=== PATIENT | female | born 1950 | race Caucasian/White ===

== ENCOUNTER 2023-05-29 21:52 | Inpatient (IN) | payer OTHER ==
[2023-05-29 23:37] LABS: #Eosinphils 0.2 thou/uL (0.0-0.7); #Monocytes 0.9 thou/uL (0.11-0.59); #Neutrophils 7.6 thou/uL (1.40-6.50); %Basophils 0.1 % (0.0-1.0); %Eosinophils 1.7 % (0.0-10.0); %Lymphocytes 6.2 % (21.0-51.0); %Monocytes 9.4 % (0.0-10.0); %Neutrophils 82.4 % (42.0-75.0); Hemoglobin 9.3 g/dL (12.0-16.0); Mean Corpuscular Volume 103.1 fl (78.0-98.0); Mean Platelet Volume 11.5 fL (7.4-10.4); Platelet Count 121 10x3/uL (130-400); RBC Distribution Width 23.4 % (11.5-14.5); Red Blood Cell (RBC) Count 2.91 mill/uL (4.20-5.40); White Blood Cell (WBC) Count 9.2 10x3/uL (4.8-10.8)
[2023-05-30 00:03] LABS: Troponin I 0.096 ng/mL (< 0.028)
[2023-05-30 00:06] LABS: ALT (SGPT) 49 U/L (8-55); AST (SGOT) 25 U/L (5-34); Albumin 3.6 g/dL (3.4-4.8); Alkaline Phosphatase 122 U/L (40-110); Anion Gap 18 mmol/L (10-20); BUN (Urea Nitrogen) 29 mg/dL (9.8-20.1); Bilirubin, Total 1.3 mg/dL (0.2-1.2); Calc. Creatinine Clearance 0 mL/min (70-130); Calcium 8.9 mg/dL (7.8-10.44); Carbon Dioxide 25 mmol/L (23-31); Chloride 100 mmol/L (98-107); Estimated GFR 13; Globulin 3.2 g/dL (2.4-3.5); Glucose 110 mg/dL (83-110); Potassium 4.2 mmol/L (3.5-5.1); Protein, Total 6.8 g/dL (5.8-8.1); Sodium 139 mmol/L (136-145)
[2023-05-30] MEDS ORDERED: Labetalol HCl 100 MG/20 ML VIAL ONE (00:17)
[2023-05-30 00:26] LABS: Acetaminophen Less than 10 mcg/mL (10.0-30.0); Alcohol Less than 10.0 mg/dL (Less than 10); Magnesium 1.9 mg/dL (1.6-2.6); Salicylate Less than 8.0 mg/dL (15.0-30.0)
[2023-05-30] MEDS ORDERED: Nitroglycerin 2% Ointment 1 INCH/1 GM Packet ONE (01:00)
[2023-05-30] MEDS ORDERED: Nitroglycerin 50 MG/250 ML BOT 250 ML ONE (01:01)
[2023-05-30] MEDS ORDERED: Nitroglycerin 50 MG/250 ML BOT 250 ML IVPB SCH (01:45)
[2023-05-30] MEDS ORDERED: Ondansetron PF 4 MG/2 ML Vial IVP PRN (02:26)
[2023-05-30] MEDS ORDERED: Ondansetron ODT 4 MG TAB PO PRN (02:26)
[2023-05-30] MEDS ORDERED: Acetaminophen 650 MG Suppository PR PRN (02:26)
[2023-05-30] MEDS ORDERED: cefTRIAXone (ROCEPHIN) 1 GM VIAL ONE (02:41)
[2023-05-30 03:11] LABS: #Eosinphils 0.2 thou/uL (0.0-0.7); #Monocytes 0.9 thou/uL (0.11-0.59); #Neutrophils 6.2 thou/uL (1.40-6.50); %Eosinophils 2.8 % (0.0-10.0); %Monocytes 11.5 % (0.0-10.0); %Neutrophils 76.5 % (42.0-75.0); Hematocrit 27.4 % (36.0-47.0); Hemoglobin 8.5 g/dL (12.0-16.0); Mean Platelet Volume 10.7 fL (7.4-10.4); Platelet Count 108 10x3/uL (130-400); RBC Distribution Width 23.2 % (11.5-14.5); Red Blood Cell (RBC) Count 2.66 mill/uL (4.20-5.40); White Blood Cell (WBC) Count 8.1 10x3/uL (4.8-10.8)
[2023-05-30 03:35] LABS: Calcium 8.5 mg/dL (7.8-10.44); Chloride 101 mmol/L (98-107); Glucose 108 mg/dL (83-110); Potassium 4.4 mmol/L (3.5-5.1); Sodium 138 mmol/L (136-145)
[2023-05-30 03:37] LABS: Anion Gap 17 mmol/L (10-20); Carbon Dioxide 24 mmol/L (23-31)
[2023-05-30 03:39] LABS: BUN (Urea Nitrogen) 31 mg/dL (9.8-20.1); Calc. Creatinine Clearance 0 mL/min (70-130); Estimated GFR 12
[2023-05-30 04:36] LABS: HBSAB Concentration Less than 8.00 mIU/mL; Hep B Core Total Ab Non-Reactive (NonReactive); Hep B Core Total Index 0.06 S/CO (0-0.79); Hep B Surf AB Non-Reactive (NonReactive); Hep C IgG Ab Non-Reactive S/CO (NonReactive); Hep C Index 0.06 S/CO (0-0.79)
[2023-05-30] MEDS: Albumin 25% 25 GM/100 ML BOT IVPB PRN ×2 (04:40→05:15)
[2023-05-30 06:16] LABS: Hep B Surf Ag Non-Reactive S/CO (NonReactive)
[2023-05-30 06:17] LABS: HBSAg Index 0.22 S/CO (0-0.99)
[2023-05-30] MEDS: Acetaminophen 325 MG TAB PO PRN (08:29)
[2023-05-30] MEDS: niCARdipine 25 MG in Sodium Chloride 0.9% 250 ML 250 ML IVPB SCH (10:23)
[2023-05-30] MEDS ORDERED: Amlodipine 10 MG TAB PO SCH (10:45)
[2023-05-30] MEDS ORDERED: Glucagon 1 MG/ML KIT IM PRN (14:31)
[2023-05-30] MEDS ORDERED: Dextrose 50% Abboject 50 ML SYRINGE SLOW IVP PRN (14:31)
[2023-05-30] MEDS ORDERED: HumaLOG 300 UNITS/3 ML VIAL SC PRN (14:31)
[2023-05-30] MEDS ORDERED: Dextrose 5% in Water 1,000 ML IV PRN (14:31)
[2023-05-30] MEDS: hydrALAZINE 25 MG TAB PO SCH (20:57)
[2023-05-30] MEDS: Atorvastatin Calcium 40 MG TAB PO SCH (20:57)
[2023-05-30] MEDS: Venlafaxine HCl XR 150 MG CAP PO SCH (20:57)
[2023-05-31] MEDS: niCARdipine 25 MG in Sodium Chloride 0.9% 250 ML 250 ML IVPB SCH (00:16)
[2023-05-31 03:59] LABS: #Eosinphils 0.4 thou/uL (0.0-0.7); #Monocytes 0.8 thou/uL (0.11-0.59); #Neutrophils 5.9 thou/uL (1.40-6.50); %Eosinophils 5.1 % (0.0-10.0); %Lymphocytes 8.6 % (21.0-51.0); %Neutrophils 76.2 % (42.0-75.0); Hematocrit 28.5 % (36.0-47.0); Hemoglobin 9.1 g/dL (12.0-16.0); Mean Corpuscular HGB CONC 31.9 g/dL (32.0-36.0); Mean Corpuscular Hemoglobin 31.8 pg (27.0-31.0); Mean Corpuscular Volume 99.7 fl (78.0-98.0); Mean Platelet Volume 10.6 fL (7.4-10.4); Platelet Count 136 10x3/uL (130-400); RBC Distribution Width 22.3 % (11.5-14.5); Red Blood Cell (RBC) Count 2.86 mill/uL (4.20-5.40); White Blood Cell (WBC) Count 7.8 10x3/uL (4.8-10.8)
[2023-05-31 04:19] LABS: ALT (SGPT) 35 U/L (8-55); AST (SGOT) 19 U/L (5-34); Albumin 3.7 g/dL (3.4-4.8); Alkaline Phosphatase 111 U/L (40-110); Anion Gap 15 mmol/L (10-20); BUN (Urea Nitrogen) 26 mg/dL (9.8-20.1); Bilirubin, Total 1.6 mg/dL (0.2-1.2); Calc. Creatinine Clearance 12 mL/min (70-130); Calcium 8.5 mg/dL (7.8-10.44); Carbon Dioxide 26 mmol/L (23-31); Chloride 98 mmol/L (98-107); Estimated GFR 14; Globulin 2.7 g/dL (2.4-3.5); Glucose 109 mg/dL (83-110); Potassium 3.9 mmol/L (3.5-5.1); Protein, Total 6.4 g/dL (5.8-8.1); Sodium 135 mmol/L (136-145)
[2023-05-31 08:24] VITALS: BMI 20.1
[2023-05-31] MEDS: Amlodipine 10 MG TAB PO SCH (08:30)
[2023-05-31] MEDS: Venlafaxine HCl XR 150 MG CAP PO SCH ×2 (08:31→20:34)
[2023-05-31] MEDS: hydrALAZINE 25 MG TAB PO SCH ×2 (08:31→20:35)
[2023-05-31] MEDS ORDERED: Heparin 10,000 UNITS/ 10 ML VIAL ONE (08:58)
[2023-05-31] MEDS ORDERED: EPOETIN ALFA-EPBX (ESRD) 10,000 UNITS/ML VIAL IVP SCH (09:00)
[2023-05-31] MEDS: Atorvastatin Calcium 40 MG TAB PO SCH (20:34)
[2023-05-31] MEDS: Acetaminophen 325 MG TAB PO PRN (20:34)
[2023-06-01] MEDS: Venlafaxine HCl XR 150 MG CAP PO SCH ×2 (08:44→19:46)
[2023-06-01] MEDS: hydrALAZINE 25 MG TAB PO SCH ×2 (08:44→19:45)
[2023-06-01] MEDS: Amlodipine 10 MG TAB PO SCH (08:44)
[2023-06-01] MEDS: Aspirin Chewable 81 MG TAB PO SCH (09:21)
[2023-06-01] MEDS: Clopidogrel Bisulfate 75 MG TAB PO SCH (09:22)
[2023-06-01] MEDS: Atorvastatin Calcium 40 MG TAB PO SCH (19:45)
[2023-06-01] MEDS: Acetaminophen 325 MG TAB PO PRN (19:46)
[2023-06-02 07:38] VITALS: BP 173/66; TEMP 97.6
[2023-06-02] MEDS: Clopidogrel Bisulfate 75 MG TAB PO SCH (07:59)
[2023-06-02] MEDS: Venlafaxine HCl XR 150 MG CAP PO SCH (07:59)
[2023-06-02] MEDS: Aspirin Chewable 81 MG TAB PO SCH (07:59)
[2023-06-02] MEDS: hydrALAZINE 25 MG TAB PO SCH (08:03)
[2023-06-02] MEDS: Amlodipine 10 MG TAB PO SCH (08:03)
[2023-06-02] MEDS ORDERED: FLU VACC QS2023(65UP)/MF59C/PF 60 MCG/0.5 ML SYRINGE IM ONE (09:00)
[2023-06-02] MEDS ORDERED: Epoetin (ESRD) 10,000 UNITS/ML VIAL IVP SCH (09:00)
== END 2023-06-02 15:48 | disposition home or self-care (01) | DRG 70 ==
LOC: ERS 21:52 → CCU 05-30 01:31 → T4-A 05-31 09:19 → T4-B 05-31 11:08 → T4-A 05-31 11:09
PROVIDERS: ADMIT Student in an Organized Health Care Education/Training Program; ATTEND Internal Medicine
PROC: 30233J1 Transfusion of Nonautologous Serum Albumin into Peripheral Vein, Percutaneous Approach (ICD-10-PCS; principal; 2023-05-30)
PROC: 5A09357 Assistance with Respiratory Ventilation, Less than 24 Consecutive Hours, Continuous Positive Airway Pressure (ICD-10-PCS; 2023-05-30)
DX: G93.41 Metabolic encephalopathy (principal); I21.A1 Myocardial infarction type 2; J96.01 Acute respiratory failure with hypoxia; N18.6 End stage renal disease; I12.0 Hypertensive chronic kidney disease with stage 5 chronic kidney disease or end stage renal disease; I16.1 Hypertensive emergency; E87.1 Hypo-osmolality and hyponatremia; E87.70 Fluid overload, unspecified; D69.6 Thrombocytopenia, unspecified; I16.0 Hypertensive urgency; D63.1 Anemia in chronic kidney disease; E80.6 Other disorders of bilirubin metabolism; E11.22 Type 2 diabetes mellitus with diabetic chronic kidney disease; Z88.0 Allergy status to penicillin; Z79.84 Long term (current) use of oral hypoglycemic drugs; Z79.899 Other long term (current) drug therapy; Z99.2 Dependence on renal dialysis; Z90.710 Acquired absence of both cervix and uterus
CPT/HCPCS: 36415; 36416; 70450; 71045; 80048; 80053; 80307; 82607; 83735; 83880; 84443; 84484; 85025; 86704; 93005; 94660; 94760; 96365; 96366; 96375; J0696; J1644; J7050; P9047; Q4081